=== PATIENT | male | born 2000 | race Caucasian/White ===

== ENCOUNTER 2025-02-23 20:39 | Observation (INO) | payer BC ==
--- NOTE | 2025-02-23 21:21 | ERPHSYRPT ---
- History of Present Illness Time Seen by Provider: 02/23/25 20:43 Historian: patient Exam Limitations: no limitations Patient Subjective Stated Complaint: pt states that he began to have pain to lower abdomen Triage Nursing Assessment: pt ambulated into the er; pt is axo x4; c/o RLQ pain; pt states 6/10 pain to RLQ; abd round, soft, tender to RLQ; active bowel sounds in quads; pt denies N/V/D; skin PDW; no respiratory distress present; vital wnl Physician History: 24 years old healthy male presented in the ER with complaints of right-sided abdominal pain since noon, moderate to severe sharp shooting, aggravated with palpation movements and partially relieved with being still. Reports no associated nausea vomiting diarrhea or constipation. Denies any radiation of pain. No urinary symptoms. Denies having similar symptoms in the past. Allergies/Adverse Reactions: No Known Drug Allergies Allergy (Unverified 02/23/25 20:45) Home Medications: No Reportable Medications [No Reported Medications] 02/23/25 [History] Hx Tetanus, Diphtheria Vaccination/Date Given: Yes Hx Influenza Vaccination/Date Given: No Hx Pneumococcal Vaccination/Date Given: No Immunizations Up to Date: No Travel Risk - International Travel Have you traveled outside of the country in past 3 weeks: No - Emerging Infectious Disease Are you exhibiting symptoms associated with any current EIDs: Yes Symptoms: Abdominal Pain - Review of Systems Constitutional: No Symptoms Ears, Nose, & Throat: No Symptoms Respiratory: No Symptoms Cardiac: No Symptoms Abdominal/Gastrointestinal: Abdominal Pain Genitourinary Symptoms: No Symptoms Musculoskeletal: No Symptoms Skin: No Symptoms Neurological: No Symptoms Endocrine: No Symptoms Hematologic/Lymphatic: No Symptoms - Past Medical History Pertinent Past Medical History: No - Past Surgical History Past Surgical History: Yes Other Surgical History: wisdom teeth - Social History Smoking Status: Never smoker Exposure to second hand smoke: No Drug Use: none - Social Determinants of Health Will the patient participate in the screening: Yes Do you worry about a steady place to live?: No Do you have any problems with any of the following?: No known problems In the past 12 months,have you had to go without utilities?: No Transportation Issues: No Has anyone in your support network made you feel unsafe?: No Have you or anyone in your house had to go w/o enough food: No - Nursing Vital Signs Nursing Vital Signs: Initial Vital Signs Temperature 97.5 F 02/23/25 20:44 Pulse Rate 79 02/23/25 20:44 Respiratory Rate 16 02/23/25 20:44 Blood Pressure 123/81 02/23/25 20:44 O2 Sat by Pulse Oximetry 99 02/23/25 20:44 Pain Scale Pain Intensity 6 - Physical Exam General Appearance: no apparent distress Eye Exam: PERRL/EOMI Ears, Nose, Throat Exam: normal ENT inspection Neck Exam: normal inspection, non-tender, supple, full range of motion Respiratory Exam: normal breath sounds, lungs clear Cardiovascular Exam: regular rate/rhythm, normal heart sounds Gastrointestinal/Abdomen Exam: tenderness (Right lower quadrant), guarding Back Exam: normal inspection, normal range of motion Neurologic Exam: alert, oriented x 3, cooperative Skin Exam: normal color SpO2 Interpretation: normal SpO2: 99 O2 Delivery: Room Air Ordered Tests: Active Orders 24 hr Category Date Time Status IV Insertion STAT Care 02/23/25 21:12 Active NPO (ED) STAT Care 02/23/25 21:12 Active ABDOMEN AND PELVIS W CONTRAST [CT] Stat Exams 02/23/25 21:42 Taken CBC W DIFF Stat Lab 02/23/25 21:25 Completed CMP Stat Lab 02/23/25 21:25 Completed LIPASE Stat Lab 02/23/25 21:25 Completed UA W/RFX UR CULTURE Stat Lab 02/23/25 21:25 Completed Transfer Order Routine Transfer 02/23/25 Ordered Medication Summary Discontinued Medications Generic Name Dose Route Start Last Admin Trade Name Freq PRN Reason Stop Dose Admin Sodium Chloride 1,000 mls @ 999 mls/hr 02/23/25 21:12 02/23/25 22:33 Sodium Chloride 0.9% 1000 Ml IV 02/23/25 22:12 Infused .Q1H1M STA Infusion Sodium Chloride Confirm 02/23/25 21:28 Sodium Chloride 0.9% 1000 Ml Administered 02/23/25 21:29 Dose 1,000 mls @ ud .ROUTE .STK-MED ONE Piperacillin Sod/Tazobactam 100 mls @ 200 mls/hr 02/23/25 22:19 02/23/25 22:28 Sod 3.375 gm/ Sodium Chloride IV 02/23/25 22:48 200 ml/hr STAT ONE 200 mls/hr Administration Sodium Chloride Confirm 02/23/25 22:24 Sodium Chloride 100ml Mini-Bag Plus Administered 02/23/25 22:25 Dose 100 mls @ ud IV .STK-MED ONE Piperacillin Sod/Tazobactam Sod Confirm 02/23/25 22:23 Piperacillin/Tazobactam Sodium 3.375 Gm Vial Administered 02/23/25 22:24 Dose 3.375 gm IV .STK-MED ONE Lab/Rad Data: Laboratory Result Diagrams 02/23/25 21:25 02/23/25 21:25 Laboratory Results 02/23/25 02/23/25 02/23/25 Range/Units 21:25 21:: WBC 11.6 H (4.23-9.07) x10^3/uL RBC 4.87 (4.63-6.08) x10^6/uL Hgb 14.0 (13.7-17.5) g/dL Hct 41.7 (40.1-51.0) % MCV 85.6 (79.0-92.2) fL MCH 28.7 (25.7-32.2) pg MCHC 33.6 (32.3-36.5) g/dL RDW 12.0 (11.6-14.4) % Plt Count 239 (163-337) x10^3/uL MPV 9.2 L (9.4-12.4) fL Gran % 75.5 H (34.0-67.9) % Immature Gran % (Auto) 0.3 (0.001-0.429) % Nucleat RBC Rel Count 0.0 (0.00-0.2) % Eos # (Auto) 0.09 (0.04-0.54) x10^3/uL Immature Gran # (Auto) 0.04 H (0.001-0.031) x10^3u/L Absolute Lymphs (auto) 1.72 (1.32-3.57) x10^3/uL Absolute Monos (auto) 0.93 H (0.30-0.82) x10^3/uL Absolute Nucleated RBC 0.00 (0.00-0.012) x10^3u/L Lymphocytes % 14.9 L (21.8-53.1) % Monocytes % 8.0 (5.3-12.2) % Eosinophils % 0.8 (0.8-7.0) % Basophils % 0.5 (0.2-1.2) % Absolute Granulocytes 8.72 H (1.78-5.38) x10^3/uL Basophils # 0.06 (0.01-0.08) x10^3/uL Sodium 139 (135-145) mmol/L Potassium 3.9 (3.5-5.1) mmol/L Chloride 102 (98-107) mmol/L Carbon Dioxide 26 (22-30) mmol/L Anion Gap 15.3 H (5-15) MEQ/L BUN 17 (9-20) mg/dL Creatinine 1.05 (0.66-1.25) mg/dL Estimated GFR 102.3 ML/MIN Glucose 113 H (74-106) mg/dL Calcium 9.5 (8.4-10.2) mg/dL Total Bilirubin 0.50 (0.2-1.3) mg/dL AST 33 (17-59) U/L ALT 31 (0-50) U/L Alkaline Phosphatase 73 (38-126) U/L Serum Total Protein 7.8 (6.3-8.2) g/dL Albumin 4.8 (3.5-5.0) g/dL Lipase 46 (23-300) U/L Urine Color Yellow (Yellow) Urine Appearance Clear (Clear) Urine pH 7.0 (4.6-8.0) Ur Specific [place] 1.025 (1.005-1.030) Urine Protein Trace A (Negative) Urine Glucose (UA) Negative (Negative) mg/dL Urine Ketones Trace A (Negative) Urine Blood Negative (Negative) Urine Nitrite Negative (Negative) Urine Bilirubin Negative (Negative) Urine Urobilinogen 1.0 A (0.2) mg/dL Ur Leukocyte Esterase Negative (Negative) U Hyaline Cast (Auto) NONE SEEN (0-2) /LPF Urine Microscopic RBC 0-2 (0-5) /HPF Urine Microscopic WBC 0-2 (0-5) /HPF Ur Epithelial Cells None Seen (None Seen) /HPF Urine Bacteria None Seen (None Seen) /HPF Urine Culture Reflexed NO (NO) - Progress Progress: unchanged, re-examined Progress Note: 02/23/25 22:51 24-year-old is evaluated in the ER for right lower quadrant pain from this afternoon. He is offered pain medication which she declined. Patient is made n.p.o., given fluids and acute abdomen workup is obtained. Has white count of 11, chemistries fairly unremarkable, no UTI. CT abdomen pelvis with contrast is consistent with findings of acute appendicitis without perforation or abscess per preliminary report, official final report is pending. We have called and discussed with Dr. Tyler Comer, recommended admission to hospitalist service, keep him n.p.o., IV antibiotics which she is given Zosyn. I have discussed with Dr. Covarrubias, reviewed history, workup and patient is accepted for admission. Complexity of problem addressed: High acuity Complexity of data reviewed/analyzed: Moderate to extensive Risk of complication with current manage condition: High risk Discussed with Dr.: Manuel Fallon Will see patient in: hospital (observation) Counseled pt/family regarding: lab results, diagnosis, rad results Medical Desision Making - Independent Historian Additional History obtained from: Spouse - Discussion of managment Care discussed with:: specialist (Dr. Tyler Comer and Dr. Del Toro) Reviewed:: Test results Agreed on:: Treatment plan, place in obs Will see patient: in hospital - Diagnostic Testing Diagnostic test were ordered, analyzed, and reviewed by me: Yes Radiological Interpretation: Reviewed by me, Teleradiologist Report - Risk of complications The pt has a mod risk of morbidity or mortality based on: Need for prescription drug management The pt has a high risk of morbidity or mortality based on: Need for emergency major surgery, Decision regarding hospitilization or escalation of hosp level of care - Departure Departure Disposition: Observation Clinical Impression: Acute appendicitis Condition: Stable Critical Care Time: Yes Critical Care Time(excluding separately billable procedures): Critical 30-74 mins
[2025-02-23] MEDS ORDERED: Sodium Chloride 0.9% 1000 ML 1,000 ML ONE (21:28)
[2025-02-23 21:31] LABS: Absolute Neutrophil Ct (ANC) 8.72 x10^3/uL (1.78-5.38); BASOPHIL % 0.5 % (0.2-1.2); Basophil (Absolute #) 0.06 x10^3/uL (0.01-0.08); Eosinophil % 0.8 % (0.8-7.0); Eosinophil (Absolute #) 0.09 x10^3/uL (0.04-0.54); Hematocrit 41.7 % (40.1-51.0); IMMATURE GRAN # 0.04 x10^3u/L (0.001-0.031); IMMATURE GRAN % 0.3 % (0.001-0.429); Lymphocyte (Absolute #) 1.72 x10^3/uL (1.32-3.57); Lymphocytes % 14.9 % (21.8-53.1); Mean Cell Volume 85.6 fL (79.0-92.2); Mean Corpuscular Hemoglobin 28.7 pg (25.7-32.2); Mean Corpuscular Hgb Concent. 33.6 g/dL (32.3-36.5); Mean Platelet Volume 9.2 fL (9.4-12.4); Monocyte (Absolute #) 0.93 x10^3/uL (0.30-0.82); Neutrophil % 75.5 % (34.0-67.9); Platelet Count 239 x10^3/uL (163-337); Red Blood Count 4.87 x10^6/uL (4.63-6.08); White Blood Count 11.6 x10^3/uL (4.23-9.07)
[2025-02-23] MEDS: Sodium Chloride 0.9% 1000 ML 1,000 ML IV STA (21:31)
[2025-02-23 21:39] LABS: Appearance Clear (Clear); Bacteria None Seen /HPF (None Seen); Bilirubin Negative (Negative); Blood Negative (Negative); Epithelial Cells None Seen /HPF (None Seen); Glucose, Urine Negative (Negative); Hyaline Casts NONE SEEN /LPF (0-2); Ketones Trace (Negative); Leukocyte Esterase Negative (Negative); Nitrite Negative (Negative); Protein,Urine Dip Trace (Negative); RBC 0-2 /HPF (0-5); Specific Gravity 1.025 (1.005-1.030); WBC 0-2 /HPF (0-5)
[2025-02-23 21:47] LABS: ALBUMIN 4.8 g/dL (3.5-5.0); ANION GAP 15.3 MEQ/L (5-15); BILIRUBIN,TOTAL 0.5 mg/dL (0.2-1.3); Calcium 9.5 mg/dL (8.4-10.2); Creatinine 1 1.05 mg/dL (0.66-1.25); EST GLOMERULAR FILTRATION RATE 102.3 ML/MIN; Potassium 3.9 mmol/L (3.5-5.1); Total Protein 7.8 g/dL (6.3-8.2)
[2025-02-23] MEDS ORDERED: PIPERACILLIN/TAZOBACTAM IV ONE (22:23)
[2025-02-23] MEDS ORDERED: Sodium Chloride 100ML MINI-BAG PLUS 100 ML IV ONE (22:24)
[2025-02-23] MEDS: PIPERACILLIN/TAZOBACTAM 3.375 GM in Sodium Chloride 100ML MINI-BAG PLUS 100 ML IV ONE (22:28)
[2025-02-23] MEDS ORDERED: Zofran 4 MG/2 ML VIAL IV PRN (22:58)
--- NOTE | 2025-02-23 23:21 | PCM.HP ---
History of Present Illness - Chief Complaint Chief Complaint: abdominal pain Date: 02/23/25 History of Present Illness: 24-year-old man with no significant past medical history who presents with 1 day of right lower quadrant pain, sharp, not radiating, tender, but not associated with nausea or diarrhea or fever. Has been progressive throughout the evening until his severe, and so he came to the ED. No prior history of any surgeries. Not on medications. Non-smoker, no family history. - Review of Systems All Other Systems: Reviewed and Negative Medications & Allergies Home Medications: Home Medication List No Reportable Medications [No Reported Medications] 02/23/25 [History Confirmed 02/23/25] Allergies/Adverse Reactions: Allergies Allergy/AdvReac Type Severity Reaction Status Date / Time No Known Drug Allergies Allergy Unverified 02/23/25 20:45 - Past Medical History Past Medical History: No - Past Surgical History Past Surgical History: Yes Other Surgical History: wisdom teeth Significant Family History: no pertinent family hx - Social History Smoking Status: Never smoker Exposure to second hand smoke: No Alcohol: Occasionally Drug Use: none - Social Determinants of Health Will the patient participate in the screening: Yes Do you worry about a steady place to live?: No Do you have any problems with any of the following?: No known problems In the past 12 months,have you had to go without utilities?: No Have you or anyone in your house had to go without enough: No Transportation Issues: No Has anyone in your support network made you feel unsafe?: No - Physical Exam Vital Signs: Vital Signs - 24 hr Temp Pulse Resp BP BP Pulse Ox 02/23/25 22:55 99 02/23/25 22:30 74 118/70 98 02/23/25 22:00 74 127/76 97 02/23/25 21:30 81 108/77 99 02/23/25 21:00 79 112/78 97 02/23/25 20:47 75 123/81 99 02/23/25 20:44 97.5 F 79 16 123/81 99 Physical Exam GEN: Sitting up in bed in no acute distress. HENT: Normocephalic, atraumatic. Moist mucous membranes. EYES: Normal inspection, anicteric sclera, extraocular movements intact. NECK: Supple, full range of motion CV: Regular rate and rhythm, no murmurs, no gallops. No JVD or edema. PULM: Clear to auscultation bilaterally, no work of breathing. On room air. ABD: Tender over the right lower quadrant without guarding or rebound. MSK: No joint effusions, full range of motion SKIN: No rashes, normal color. NEURO: Face symmetric, no focal motor or sensory deficits. PSYCH: Alert, oriented x 3 Results - Labs Lab/Micro Results: Lab Results-Last 24 Hours 02/23/25 02/23/25 02/23/25 Range/Units 21:25 21:: WBC 11.6 H (4.23-9.07) x10^3/uL RBC 4.87 (4.63-6.08) x10^6/uL Hgb 14.0 (13.7-17.5) g/dL Hct 41.7 (40.1-51.0) % MCV 85.6 (79.0-92.2) fL MCH 28.7 (25.7-32.2) pg MCHC 33.6 (32.3-36.5) g/dL RDW 12.0 (11.6-14.4) % Plt Count 239 (163-337) x10^3/uL MPV 9.2 L (9.4-12.4) fL Gran % 75.5 H (34.0-67.9) % Immature Gran % (Auto) 0.3 (0.001-0.429) % Nucleat RBC Rel Count 0.0 (0.00-0.2) % Eos # (Auto) 0.09 (0.04-0.54) x10^3/uL Immature Gran # (Auto) 0.04 H (0.001-0.031) x10^3u/L Absolute Lymphs (auto) 1.72 (1.32-3.57) x10^3/uL Absolute Monos (auto) 0.93 H (0.30-0.82) x10^3/uL Absolute Nucleated RBC 0.00 (0.00-0.012) x10^3u/L Lymphocytes % 14.9 L (21.8-53.1) % Monocytes % 8.0 (5.3-12.2) % Eosinophils % 0.8 (0.8-7.0) % Basophils % 0.5 (0.2-1.2) % Absolute Granulocytes 8.72 H (1.78-5.38) x10^3/uL Basophils # 0.06 (0.01-0.08) x10^3/uL Sodium 139 (135-145) mmol/L Potassium 3.9 (3.5-5.1) mmol/L Chloride 102 (98-107) mmol/L Carbon Dioxide 26 (22-30) mmol/L Anion Gap 15.3 H (5-15) MEQ/L BUN 17 (9-20) mg/dL Creatinine 1.05 (0.66-1.25) mg/dL Estimated GFR 102.3 ML/MIN Glucose 113 H (74-106) mg/dL Calcium 9.5 (8.4-10.2) mg/dL Total Bilirubin 0.50 (0.2-1.3) mg/dL AST 33 (17-59) U/L ALT 31 (0-50) U/L Alkaline Phosphatase 73 (38-126) U/L Serum Total Protein 7.8 (6.3-8.2) g/dL Albumin 4.8 (3.5-5.0) g/dL Lipase 46 (23-300) U/L Urine Color Yellow (Yellow) Urine Appearance Clear (Clear) Urine pH 7.0 (4.6-8.0) Ur Specific [place] 1.025 (1.005-1.030) Urine Protein Trace A (Negative) Urine Glucose (UA) Negative (Negative) mg/dL Urine Ketones Trace A (Negative) Urine Blood Negative (Negative) Urine Nitrite Negative (Negative) Urine Bilirubin Negative (Negative) Urine Urobilinogen 1.0 A (0.2) mg/dL Ur Leukocyte Esterase Negative (Negative) U Hyaline Cast (Auto) NONE SEEN (0-2) /LPF Urine Microscopic RBC 0-2 (0-5) /HPF Urine Microscopic WBC 0-2 (0-5) /HPF Ur Epithelial Cells None Seen (None Seen) /HPF Urine Bacteria None Seen (None Seen) /HPF Urine Culture Reflexed NO (NO) - Radiology Impressions Radiology Exams & Impressions: Radiology Procedures Category Date Time Status ABDOMEN AND PELVIS W CONTRAST [CT] Stat Exams 02/23/25 21:[address] abdomen results not available in EMR, but per ED physician, shows acute appendicitis without perforation or abscess. Assessment/Plan (1) Acute appendicitis Current Visit: Yes Status: Acute Assessment & Plan: 24-year-old man with no significant past medical history here with pain and imaging findings consistent with acute appendicitis. No evidence of perforation or abscess on imaging. No signs of systemic infection on labs or vitals. Leave n.p.o. after midnight Dr. Comer with surgery to see patient tomorrow Likely OR for appendectomy tomorrow PRN morphine PRN Zofran Zosyn 3.375 g IV q.6 hours until surgery CODE STATUS: Full code Prophylaxis: Low risk, encourage ambulation Diet: N.p.o. Dispo: Place in observation Entirety of encounter took place via live audio/video telemedicine device, with remote physician and patient in hospital, with the assistance of bedside nurse. Code(s): K35.80 - UNSPECIFIED ACUTE APPENDICITIS Telemedicine Encounter - Telemedicine Encounter Telemedicine Encounter: "The entirety of this encounter was performed via Telemedicine" This visit was performed using real-time audio and video connection between my location and thepatients locationwith the assistance of a surrogateat the patients location. Written or verbal consent was obtained from the patient/guardian to perform this visit [facility] technology. Any patient questions regarding the telemedicine interaction were answered.
[2025-02-24] MEDS: Lactated Ringers 1,000 ML IV SCH ×2 (00:15→11:06)
[2025-02-24 04:56] LABS: Hematocrit 42.1 % (40.1-51.0); Mean Cell Volume 87.5 fL (79.0-92.2); Mean Corpuscular Hemoglobin 29.1 pg (25.7-32.2); Mean Corpuscular Hgb Concent. 33.3 g/dL (32.3-36.5); Mean Platelet Volume 8.9 fL (9.4-12.4); Platelet Count 195 x10^3/uL (163-337); Red Blood Count 4.81 x10^6/uL (4.63-6.08); Red Cell Distribution Width 12.1 % (11.6-14.4); White Blood Count 10.2 x10^3/uL (4.23-9.07)
[2025-02-24] MEDS: PIPERACILLIN/TAZOBACTAM 3.375 GM in Sodium Chloride 100ML MINI-BAG PLUS 100 ML IV SCH (05:12)
[2025-02-24 05:13] LABS: ANION GAP 15.8 MEQ/L (5-15); Calcium 8.9 mg/dL (8.4-10.2); Creatinine 1 0.86 mg/dL (0.66-1.25); EST GLOMERULAR FILTRATION RATE 124.8 ML/MIN
[2025-02-24 07:53] VITALS: RESP 16
--- NOTE | 2025-02-24 08:49 | XRAY ---
Indication: Right lower quadrant pain. Multiple contiguous axial images obtained through the abdomen and pelvis using 80 cc Isovue 370 contrast. Comparison: None Lung bases clear. Heart not enlarged. Stomach distended with food/fluid. Noncontrasted stomach and bowel loops appears nonobstructed. Prominent appendix up to 8mm with minimal periappendiceal stranding favoring acute appendicitis. No free fluid/air. Remaining liver, gallbladder, pancreas, spleen, adrenal glands, kidneys, ureters, bladder, and aorta are unremarkable. No pathologic retroperitoneal lymphadenopathy. Incidental retroaortic left renal vein. Osseous structures intact. No ventral or inguinal hernias. Impression: CT features favoring noncomplicated acute appendicitis.
--- NOTE | 2025-02-24 09:39 | PCM.DS ---
Discharge Summary Date of Admission: 02/23/25 22:56 Date of Discharge: 02/24/25 Admitting Physician: BRANDY CHRISTINE MD Consults: Consults on Case 02/24/25 08:12 Consult Surgery ROUTINE Primary Care Provider: GIANLUCA FREEMAN NP Allergies Allergies No Known Drug Allergies Allergy (Unverified 02/23/25 20:45) Hospital Summary - Hospital Course Hospital Course: 24-year-old man with no significant past medical history who presents with 1 day of right lower quadrant pain, sharp, not radiating, tender, but not associated with nausea or diarrhea or fever. Has been progressive throughout the evening on 02/23 until severe, and so he came to the ED. No prior history of any surgeries. Not on medications. Non-smoker, no family history. General surgery consulted and the plan is to go to surgery this afternoon. May possibly d/c thereafter. Continue Zosyn, IVF, and narcotic IV meds. Per surgery if pt able to eat, drink and walk around unit without concerns may d/c. - Vitals & Intake/Output Vital Signs: Vital Signs Temperature 98.1 F 02/24/25 08:41 Pulse Rate 82 02/24/25 08:41 Respiratory Rate 16 02/24/25 08:41 Blood Pressure 109/62 02/24/25 08:41 O2 Sat by Pulse Oximetry 98 02/24/25 08:41 Intake & Output: Intake & Output 02/21/25 02/22/25 02/23/25 02/24/25 11:59 11:59 11:59 11:59 Intake Total 413 Balance 413 Weight 79 kg - Lab Result Diagrams: 02/24/25 04:45 02/24/25 04:45 Lab Results-Last 24 Hrs: Lab Results-Last 24 Hours 02/23/25 02/23/25 02/23/25 Range/Units 21:25 21:25 21:25 WBC 11.6 H (4.23-9.07) x10^3/uL RBC 4.87 (4.63-6.08) x10^6/uL Hgb 14.0 (13.7-17.5) g/dL Hct 41.7 (40.1-51.0) % MCV 85.6 (79.0-92.2) fL MCH 28.7 (25.7-32.2) pg MCHC 33.6 (32.3-36.5) g/dL RDW 12.0 (11.6-14.4) % Plt Count 239 (163-337) x10^3/uL MPV 9.2 L (9.4-12.4) fL Gran % 75.5 H (34.0-67.9) % Immature Gran % (Auto) 0.3 (0.001-0.429) % Nucleat RBC Rel Count 0.0 (0.00-0.2) % Eos # (Auto) 0.09 (0.04-0.54) x10^3/uL Immature Gran # (Auto) 0.04 H (0.001-0.031) x10^3u/L Absolute Lymphs (auto) 1.72 (1.32-3.57) x10^3/uL Absolute Monos (auto) 0.93 H (0.30-0.82) x10^3/uL Absolute Nucleated RBC 0.00 (0.00-0.012) x10^3u/L Lymphocytes % 14.9 L (21.8-53.1) % Monocytes % 8.0 (5.3-12.2) % Eosinophils % 0.8 (0.8-7.0) % Basophils % 0.5 (0.2-1.2) % Absolute Granulocytes 8.72 H (1.78-5.38) x10^3/uL Basophils # 0.06 (0.01-0.08) x10^3/uL Sodium 139 (135-145) mmol/L Potassium 3.9 (3.5-5.1) mmol/L Chloride 102 (98-107) mmol/L Carbon Dioxide 26 (22-30) mmol/L Anion Gap 15.3 H (5-15) MEQ/L BUN 17 (9-20) mg/dL Creatinine 1.05 (0.66-1.25) mg/dL Estimated GFR 102.3 ML/MIN Glucose 113 H (74-106) mg/dL Calcium 9.5 (8.4-10.2) mg/dL Total Bilirubin 0.50 (0.2-1.3) mg/dL AST 33 (17-59) U/L ALT 31 (0-50) U/L Alkaline Phosphatase 73 (38-126) U/L Serum Total Protein 7.8 (6.3-8.2) g/dL Albumin 4.8 (3.5-5.0) g/dL Lipase 46 (23-300) U/L Urine Color Yellow (Yellow) Urine Appearance Clear (Clear) Urine pH 7.0 (4.6-8.0) Ur Specific [place] 1.025 (1.005-1.030) Urine Protein Trace A (Negative) Urine Glucose (UA) Negative (Negative) mg/dL Urine Ketones Trace A (Negative) Urine Blood Negative (Negative) Urine Nitrite Negative (Negative) Urine Bilirubin Negative (Negative) Urine Urobilinogen 1.0 A (0.2) mg/dL Ur Leukocyte Esterase Negative (Negative) U Hyaline Cast (Auto) NONE SEEN (0-2) /LPF Urine Microscopic RBC 0-2 (0-5) /HPF Urine Microscopic WBC 0-2 (0-5) /HPF Ur Epithelial Cells None Seen (None Seen) /HPF Urine Bacteria None Seen (None Seen) /HPF Urine Culture Reflexed NO (NO) 02/24/25 02/24/25 Range/Units 04:45 04:45 WBC 10.2 H (4.23-9.07) x10^3/uL RBC 4.81 (4.63-6.08) x10^6/uL Hgb 14.0 (13.7-17.5) g/dL Hct 42.1 (40.1-51.0) % MCV 87.5 (79.0-92.2) fL MCH 29.1 (25.7-32.2) pg MCHC 33.3 (32.3-36.5) g/dL RDW 12.1 (11.6-14.4) % Plt Count 195 (163-337) x10^3/uL MPV 8.9 L (9.4-12.4) fL Gran % (34.0-67.9) % Immature Gran % (Auto) (0.001-0.429) % Nucleat RBC Rel Count (0.00-0.2) % Eos # (Auto) (0.04-0.54) x10^3/uL Immature Gran # (Auto) (0.001-0.031) x10^3u/L Absolute Lymphs (auto) (1.32-3.57) x10^3/uL Absolute Monos (auto) (0.30-0.82) x10^3/uL Absolute Nucleated RBC (0.00-0.012) x10^3u/L Lymphocytes % (21.8-53.1) % Monocytes % (5.3-12.2) % Eosinophils % (0.8-7.0) % Basophils % (0.2-1.2) % Absolute Granulocytes (1.78-5.38) x10^3/uL Basophils # (0.01-0.08) x10^3/uL Sodium 138 (135-145) mmol/L Potassium 4.0 (3.5-5.1) mmol/L Chloride 105 (98-107) mmol/L Carbon Dioxide 22 (22-30) mmol/L Anion Gap 15.8 H (5-15) MEQ/L BUN 13 (9-20) mg/dL Creatinine 0.86 (0.66-1.25) mg/dL Estimated GFR 124.8 ML/MIN Glucose 110 H (74-106) mg/dL Calcium 8.9 (8.4-10.2) mg/dL Total Bilirubin (0.2-1.3) mg/dL AST (17-59) U/L ALT (0-50) U/L Alkaline Phosphatase (38-126) U/L Serum Total Protein (6.3-8.2) g/dL Albumin (3.5-5.0) g/dL Lipase (23-300) U/L Urine Color (Yellow) Urine Appearance (Clear) Urine pH (4.6-8.0) Ur Specific [place] (1.005-1.030) Urine Protein (Negative) Urine Glucose (UA) (Negative) mg/dL Urine Ketones (Negative) Urine Blood (Negative) Urine Nitrite (Negative) Urine Bilirubin (Negative) Urine Urobilinogen (0.2) mg/dL Ur Leukocyte Esterase (Negative) U Hyaline Cast (Auto) (0-2) /LPF Urine Microscopic RBC (0-5) /HPF Urine Microscopic WBC (0-5) /HPF Ur Epithelial Cells (None Seen) /HPF Urine Bacteria (None Seen) /HPF Urine Culture Reflexed (NO) - Radiology Exams Ordered Rad Exams-Entire Visit: Radiology Procedures Category Date Time Status ABDOMEN AND PELVIS W CONTRAST [CT] Stat Exams 02/23/25 21:42 Completed Discharge Exam General Appearance: no apparent distress, alert Neurologic Exam: alert, oriented x 3, cooperative, normal mood/affect, nml cerebellar function, sensation nml, No motor deficits Eye Exam: PERRL, EOMI, eyes nml inspection Ears, Nose, Throat Exam: normal ENT inspection, pharynx normal, moist mucous mem branes Neck Exam: normal inspection, non-tender, supple, full range of motion Respiratory Exam: normal breath sounds, lungs clear, No respiratory distress Cardiovascular Exam: regular rate/rhythm, normal heart sounds Gastrointestinal/Abdomen Exam: soft, tenderness (RLQ), No mass Male Genitalia Exam: deferred Rectal Exam: deferred Back Exam: normal inspection, normal range of motion, No CVA tenderness, No vertebral tenderness Extremity Exam: normal inspection, normal range of motion Skin Exam: normal color, warm, dry Final Diagnosis/Problem List - Final Discharge Diagnosis/Problem (1) Acute appendicitis Current Visit: Yes Status: Acute Assessment & Plan: - CBC, CMP reviewed - CT Abd./Pelvis: Impression: CT features favoring noncomplicated acute appendicitis. - Zosyn - Morphine IV for pain - IVF - Zofran for nausea PRN - WBC 10.2 - General surgery consulted- plan is surgery this afternoon - Per ok to d/c Code(s): K35.80 - UNSPECIFIED ACUTE APPENDICITIS (2) Leukocytosis Current Visit: Yes Status: Acute Assessment & Plan: - 2:2 acute appendicitis- see plan above Code(s): D72.829 - ELEVATED WHITE BLOOD CELL COUNT, UNSPECIFIED (3) Dehydration Current Visit: Yes Status: Acute Assessment & Plan: - Anion gap 15.8- trend - IVF Code(s): E86.0 - DEHYDRATION - Discharge Discharge Date: 02/24/25 Disposition: Home, Self-Care Condition: Stable Prescriptions: New Hydrocodone/Acetaminophen [Hydrocodone-Acetamin 5-325 mg] 1 tab PO Q6HPRN PRN 7 Days #20 tablet MDD 4 PRN Reason: Pain Hydrocodone/Acetaminophen [Hydrocodone-Acetamin 5-325 mg] 1 tab PO Q6HPRN PRN 7 Days #20 tablet MDD 4 PRN Reason: Pain Instructions: Appendectomy - Discharge instructions Additional Instructions: Leave drsg in place for 24-36 hours then may remove. Steri strips are to remain in place and fall off on their own. Follow up with: JUSTINO SANTIAGO MD [ACTIVE STAFF] - 03/07/25 1:10 pm ([place] Office) GIANLUCA FREEMAN NP [Primary Care Provider] - 02/27/25 2:00 pm
[2025-02-24] MEDS: CEFOXITIN 2 GM/100 ML NACL IVPB 2 GM/100 ML IVPB IV SCH (11:06)
[2025-02-24 12:11] VITALS: O2SAT 99
[2025-02-24] MEDS ORDERED: TORAdol 30 mg Injection ONE (12:17)
[2025-02-24] MEDS ORDERED: SUBLIMAZE 100 MCG/2 ML ONE (12:17)
[2025-02-24] MEDS ORDERED: ROCURONIUM BROMIDE IV ONE (12:17)
[2025-02-24] MEDS ORDERED: propofoL IV ONE (12:17)
[2025-02-24] MEDS ORDERED: Xylocaine-Mpf 2% 5 Ml Vial ONE (12:17)
[2025-02-24] MEDS ORDERED: dexAMETHasone sodium phosphate ONE (12:17)
[2025-02-24] MEDS ORDERED: BRIDION 200MG/2ML IV ONE (12:17)
[2025-02-24] MEDS ORDERED: Zofran 4 MG/2 ML VIAL ONE (12:17)
[2025-02-24] MEDS ORDERED: Versed 2 MG/2 ML Injection ONE (12:18)
--- NOTE | 2025-02-24 12:37 | PCM.CONS ---
History of Present Illness - Reason for Consult Chief Complaint: abdominal pain Requesting Provider: BRANDY CHRISTINE MD Consulting Provider: JUSTINO SANTIAGO MD History of Present Illness: is a 24 year old male. hx pe chart review and d/wpt. 24yo previously healthy. wisdom teeth no other surgeries. noon 4/10 abd pain. migrating to RLQ. to ED workup with acute appy. started on abx. admit. overnight still with localized pain RLQ. no other real associated sx. " History of Present Illness Time Seen by Provider: 02/23/25 20:43 Historian: patient Exam Limitations: no limitations Patient Subjective Stated Complaint: pt states that he began to have pain to lower abdomen Triage Nursing Assessment: pt ambulated into the er; pt is axo x4; c/o RLQ pain; pt states 6/10 pain to RLQ; abd round, soft, tender to RLQ; active bowel sounds in quads; pt denies N/V/D; skin PDW; no respiratory distress present; vital wnl Physician History: 24 years old healthy male presented in the ER with complaints of right-sided abdominal pain since noon, moderate to severe sharp shooting, aggravated with palpation movements and partially relieved with being still. Reports no associated nausea vomiting diarrhea or constipation. Denies any radiation of pain. No urinary symptoms. Denies having similar symptoms in the past. Allergies/Adverse Reactions: No Known Drug Allergies Allergy (Unverified 02/23/25 20:45) Home Medications: No Reportable Medications [No Reported Medications] 02/23/25 [History] Hx Tetanus, Diphtheria Vaccination/Date Given: Yes Hx Influenza Vaccination/Date Given: No Hx Pneumococcal Vaccination/Date Given: No Immunizations Up to Date: No Travel Risk - International Travel Have you traveled outside of the country in past 3 weeks: No - Emerging Infectious Disease Are you exhibiting symptoms associated with any current EIDs: Yes Symptoms: Abdominal Pain - Review of Systems Constitutional: No Symptoms Ears, Nose, & Throat: No Symptoms Respiratory: No Symptoms Cardiac: No Symptoms Abdominal/Gastrointestinal: Abdominal Pain Genitourinary Symptoms: No Symptoms Musculoskeletal: No Symptoms Skin: No Symptoms Neurological: No Symptoms Endocrine: No Symptoms Hematologic/Lymphatic: No Symptoms - Past Medical History Pertinent Past Medical History: No - Past Surgical History Past Surgical History: Yes Other Surgical History: wisdom teeth - Social History Smoking Status: Never smoker Exposure to second hand smoke: No Drug Use: none - Social Determinants of Health Will the patient participate in the screening: Yes Do you worry about a steady place to live?: No Do you have any problems with any of the following?: No known problems In the past 12 months,have you had to go without utilities?: No Transportation Issues: No Has anyone in your support network made you feel unsafe?: No Have you or anyone in your house had to go w/o enough food: No" Medications & Allergies Home Medications: Home Medication List No Reportable Medications [No Reported Medications] 02/23/25 [History Confirmed 02/23/25] Allergies/Adverse Reactions: Allergies Allergy/AdvReac Type Severity Reaction Status Date / Time No Known Drug Allergies Allergy Unverified 02/23/25 20:45 - Past Medical History Past Medical History: No - Past Surgical History Past Surgical History: Yes Other Surgical History: wisdom teeth Significant Family History: no pertinent family hx - Social History Smoking Status: Never smoker Exposure to second hand smoke: No Alcohol: Occasionally Drug Use: none - Social Determinants of Health Will the patient participate in the screening: Yes Do you worry about a steady place to live?: No Do you have any problems with any of the following?: No known problems In the past 12 months,have you had to go without utilities?: No Have you or anyone in your house had to go without enough: No Transportation Issues: No Has anyone in your support network made you feel unsafe?: No - Physical Exam Vital Signs: Vital Signs - 24 hr Temp Pulse Resp BP BP Pulse Ox 02/24/25 12:00 97.7 F 81 16 113/66 99 02/24/25 08:41 98.1 F 82 16 109/62 98 02/24/25 07:52 98.1 F 82 16 109/62 98 02/24/25 04:00 96.9 F 83 18 121/60 99 02/23/25 23:24 98.8 F 93 H 18 117/60 02/23/25 22:58 98.8 F 93 H 18 117/60 02/23/25 22:55 99 02/23/25 22:30 74 118/70 98 02/23/25 22:00 74 127/76 97 02/23/25 21:30 81 108/77 99 02/23/25 21:00 79 112/78 97 02/23/25 20:47 75 123/81 99 02/23/25 20:44 97.5 F 79 16 123/81 99 Additional Findings: 02/24/25 12:35 nad no scleral icterus neck symmetric nonlabred resps rrr nd, soft, mild ttp RLQ localized voluntary guarding no rebound. no edema Results - Labs Lab/Micro Results: Lab Results-Last 24 Hours 02/23/25 02/23/25 02/23/25 Range/Units 21:25 21:: WBC 11.6 H (4.23-9.07) x10^3/uL RBC 4.87 (4.63-6.08) x10^6/uL Hgb 14.0 (13.7-17.5) g/dL Hct 41.7 (40.1-51.0) % MCV 85.6 (79.0-92.2) fL MCH 28.7 (25.7-32.2) pg MCHC 33.6 (32.3-36.5) g/dL RDW 12.0 (11.6-14.4) % Plt Count 239 (163-337) x10^3/uL MPV 9.2 L (9.4-12.4) fL Gran % 75.5 H (34.0-67.9) % Immature Gran % (Auto) 0.3 (0.001-0.429) % Nucleat RBC Rel Count 0.0 (0.00-0.2) % Eos # (Auto) 0.09 (0.04-0.54) x10^3/uL Immature Gran # (Auto) 0.04 H (0.001-0.031) x10^3u/L Absolute Lymphs (auto) 1.72 (1.32-3.57) x10^3/uL Absolute Monos (auto) 0.93 H (0.30-0.82) x10^3/uL Absolute Nucleated RBC 0.00 (0.00-0.012) x10^3u/L Lymphocytes % 14.9 L (21.8-53.1) % Monocytes % 8.0 (5.3-12.2) % Eosinophils % 0.8 (0.8-7.0) % Basophils % 0.5 (0.2-1.2) % Absolute Granulocytes 8.72 H (1.78-5.38) x10^3/uL Basophils # 0.06 (0.01-0.08) x10^3/uL Sodium 139 (135-145) mmol/L Potassium 3.9 (3.5-5.1) mmol/L Chloride 102 (98-107) mmol/L Carbon Dioxide 26 (22-30) mmol/L Anion Gap 15.3 H (5-15) MEQ/L BUN 17 (9-20) mg/dL Creatinine 1.05 (0.66-1.25) mg/dL Estimated GFR 102.3 ML/MIN Glucose 113 H (74-106) mg/dL Calcium 9.5 (8.4-10.2) mg/dL Total Bilirubin 0.50 (0.2-1.3) mg/dL AST 33 (17-59) U/L ALT 31 (0-50) U/L Alkaline Phosphatase 73 (38-126) U/L Serum Total Protein 7.8 (6.3-8.2) g/dL Albumin 4.8 (3.5-5.0) g/dL Lipase 46 (23-300) U/L Urine Color Yellow (Yellow) Urine Appearance Clear (Clear) Urine pH 7.0 (4.6-8.0) Ur Specific [place] 1.025 (1.005-1.030) Urine Protein Trace A (Negative) Urine Glucose (UA) Negative (Negative) mg/dL Urine Ketones Trace A (Negative) Urine Blood Negative (Negative) Urine Nitrite Negative (Negative) Urine Bilirubin Negative (Negative) Urine Urobilinogen 1.0 A (0.2) mg/dL Ur Leukocyte Esterase Negative (Negative) U Hyaline Cast (Auto) NONE SEEN (0-2) /LPF Urine Microscopic RBC 0-2 (0-5) /HPF Urine Microscopic WBC 0-2 (0-5) /HPF Ur Epithelial Cells None Seen (None Seen) /HPF Urine Bacteria None Seen (None Seen) /HPF Urine Culture Reflexed NO (NO) 02/24/25 02/24/25 Range/Units 04:45 04:45 WBC 10.2 H (4.23-9.07) x10^3/uL RBC 4.81 (4.63-6.08) x10^6/uL Hgb 14.0 (13.7-17.5) g/dL Hct 42.1 (40.1-51.0) % MCV 87.5 (79.0-92.2) fL MCH 29.1 (25.7-32.2) pg MCHC 33.3 (32.3-36.5) g/dL RDW 12.1 (11.6-14.4) % Plt Count 195 (163-337) x10^3/uL MPV 8.9 L (9.4-12.4) fL Gran % (34.0-67.9) % Immature Gran % (Auto) (0.001-0.429) % Nucleat RBC Rel Count (0.00-0.2) % Eos # (Auto) (0.04-0.54) x10^3/uL Immature Gran # (Auto) (0.001-0.031) x10^3u/L Absolute Lymphs (auto) (1.32-3.57) x10^3/uL Absolute Monos (auto) (0.30-0.82) x10^3/uL Absolute Nucleated RBC (0.00-0.012) x10^3u/L Lymphocytes % (21.8-53.1) % Monocytes % (5.3-12.2) % Eosinophils % (0.8-7.0) % Basophils % (0.2-1.2) % Absolute Granulocytes (1.78-5.38) x10^3/uL Basophils # (0.01-0.08) x10^3/uL Sodium 138 (135-145) mmol/L Potassium 4.0 (3.5-5.1) mmol/L Chloride 105 (98-107) mmol/L Carbon Dioxide 22 (22-30) mmol/L Anion Gap 15.8 H (5-15) MEQ/L BUN 13 (9-20) mg/dL Creatinine 0.86 (0.66-1.25) mg/dL Estimated GFR 124.8 ML/MIN Glucose 110 H (74-106) mg/dL Calcium 8.9 (8.4-10.2) mg/dL Total Bilirubin (0.2-1.3) mg/dL AST (17-59) U/L ALT (0-50) U/L Alkaline Phosphatase (38-126) U/L Serum Total Protein (6.3-8.2) g/dL Albumin (3.5-5.0) g/dL Lipase (23-300) U/L Urine Color (Yellow) Urine Appearance (Clear) Urine pH (4.6-8.0) Ur Specific [place] (1.005-1.030) Urine Protein (Negative) Urine Glucose (UA) (Negative) mg/dL Urine Ketones (Negative) Urine Blood (Negative) Urine Nitrite (Negative) Urine Bilirubin (Negative) Urine Urobilinogen (0.2) mg/dL Ur Leukocyte Esterase (Negative) U Hyaline Cast (Auto) (0-2) /LPF Urine Microscopic RBC (0-5) /HPF Urine Microscopic WBC (0-5) /HPF Ur Epithelial Cells (None Seen) /HPF Urine Bacteria (None Seen) /HPF Urine Culture Reflexed (NO) - Radiology Impressions Radiology Exams & Impressions: Radiology Procedures Category Date Time Status ABDOMEN AND PELVIS W CONTRAST [CT] Stat Exams 02/23/25 21:42 Completed Assessment/Plan (1) Acute appendicitis Current Visit: Yes Status: Acute Assessment & Plan: 24yo male with acute rlq abd pain, locazlied tenderness. leukocytosis ct confirmed acute nonperfated appendicitis. -to OR lap appy possible open. Code(s): K35.80 - UNSPECIFIED ACUTE APPENDICITIS
[2025-02-24] MEDS ORDERED: Sensorcaine 0.25% 10 ML ONE (12:54)
[2025-02-24] MEDS ORDERED: DEXMEDETOMIDINE 80 MCG/20ML-NS IV ONE (13:09)
[2025-02-24] MEDS ORDERED: TYLENOL 325 MG PO PRN (15:02)
[2025-02-24] MEDS ORDERED: NORCO 5/325 MG PO PRN (15:03)
[2025-02-24] MEDS: MORPHINE SULFATE 2 MG INJ IV PRN (15:05)
[2025-02-24 16:13] VITALS: BP 102/61; PULSE 83; TEMP 97.8
--- NOTE | 2025-02-27 08:33 | OP ---
SURGERY DATE: SURGERY DATE/TIME: 02/24/2025 [id number] PREOPERATIVE DIAGNOSIS: Appendicitis. POSTOPERATIVE DIAGNOSIS: Appendicitis, nonperforated. PROCEDURE: Laparoscopic appendectomy. SURGEON: Navid Comer MD ANESTHESIA: General. ESTIMATED BLOOD LOSS: Minimal. PATIENT CONDITION: Stable. COMPLICATIONS: None. SPECIMEN: Appendix. HISTORY OF PRESENT ILLNESS: Patient is a 24-year-old male who presents with acute right lower quadrant abdominal pain, localized tenderness on exam, leukocytosis, and CT scan showing appendicitis. Discussion was had with the patient. Risks of infection, bleeding, injury to nearby structure, and negative exam. He does want to proceed with appendectomy. FINDINGS: Dilated injected tip, healthy base. DESCRIPTION OF PROCEDURE: Patient brought to the operating room. General anesthesia induced. Routinely positioned, prepped and draped. Time-out performed. Received a preoperative antibiotic. Veress needle inserted in left upper quadrant. Pneumoperitoneum established. A 5 mm Optiview trocar placed supraumbilical. The abdomen is surveyed. A 12 mm left lower quadrant trocar placed. A 5 mm suprapubic trocar placed. Patient positioned. The appendix was obviously inflamed, injected, dilated tip, healthy base. The mesoappendix was taken with LigaSure. The base of the appendix was taken with a white load ÓSCAR stapler, placed in a specimen bag, removed through the 12 trocar site. The staple line was satisfactory. There was good hemostasis. The 12 trocar was closed with 0 Vicryl interrupted suture passer. Suprapubic port removed. Supraumbilical used for desufflation and removed. Marcaine had been injected in all the incision sites. Skin was closed with 4-0 Vicryl suture. Steri-Strips and sterile dressing applied. All counts correct. Patient tolerated the procedure well.
== END 2025-02-24 17:42 | disposition home or self-care (01) ==
LOC: ED 20:39 → MED SURG 22:56
PROVIDERS: ADMIT Internal Medicine; ATTEND Internal Medicine
DX: K35.80 Unspecified acute appendicitis (principal); D72.829 Elevated white blood cell count, unspecified
CPT/HCPCS: 36415; 44970; 74177; 80048; 80053; 81001; 83690; 85025; 85027; 99285; G0378; Q3014; J0694; J1100; J1885; J2250; J2270; J2405; J2704; J3010